=== PATIENT | male | born 1965 | race Caucasian/White ===

== ENCOUNTER 2019-09-17 10:10 | Emergency (ER) | payer SELFPAY ==
[~2019-09-17] VITALS: Ht 170.2 cm; Wt 81.8 kg
[2019-09-17 11:08] LABS: BASO % 0.7 % (0.0-1.0); EOS # 0.4 10^3/uL (0.0-0.5); EOS % 6.9 % (0.0-3.0); HEMATOCRIT 49.2 % (42.0-52.0); HEMOGLOBIN 15.7 g/dl (13.5-17.5); LYMPH % 32.2 % (24.0-44.0); MEAN CORPUSCULAR HEMOGLOBIN 27.5 pg (27.0-33.0); MEAN CORPUSCULAR HGB CONC 31.9 g/dl (32.0-36.5); MEAN CORPUSCULAR VOLUME 86.3 fl (80.0-96.0); MONO # 0.6 10^3/uL (0.0-0.8); MONO % 9.5 % (0.0-5.0); NEUTROPHILS # 3.1 10^3/uL (1.5-8.5); NEUTROPHILS % 50.4 % (36.0-66.0); PLATELET COUNT, AUTOMATED 226 10^3/uL (150-450); WHITE BLOOD COUNT 6.1 10^3/uL (4.0-10.0)
[2019-09-17 11:36] LABS: ALBUMIN 3.8 GM/DL (3.2-5.2); ALT/SGPT 36 U/L (12-78); BILIRUBIN,DIRECT 0.1 MG/DL (0.0-0.2); BILIRUBIN,TOTAL 0.7 MG/DL (0.2-1.0); BLOOD UREA NITROGEN 12 MG/DL (7-18); CALCIUM LEVEL 9.3 MG/DL (8.5-10.1); CARBON DIOXIDE LEVEL 30 MEQ/L (21-32); CHLORIDE LEVEL 107 MEQ/L (98-107); CREATININE FOR GFR 1.06 MG/DL (0.70-1.30); GLOMERULAR FILTRATION RATE > 60.0 (>56); GLUCOSE, FASTING 93 MG/DL (70-100); LIPASE 81 U/L (73-393); POTASSIUM SERUM 5.3 MEQ/L (3.5-5.1); SODIUM LEVEL 141 MEQ/L (136-145); TOTAL PROTEIN 7.1 GM/DL (6.4-8.2)
--- NOTE | 2019-09-17 12:16 | REP ---
CT ABDOMEN AND PELVIS WITHOUT IV OR ORAL CONTRAST: HISTORY: Flank pain right lateral abdomen pain. Hematuria. No comparison imaging. CT CONTRAST DOSE: Preliminary digital traffic i manager radiograph demonstrates an unremarkable bowel gas pattern. The lung bases are clear on axial CT images. There is no evidence of pleural effusion or upper abdominal ascites. The liver and the spleen are normal in size. There are four low-density 1 cm areas in the left and right lobe of the liver consistent with hemangiomas or cysts. No abnormalities noted the gallbladder. The spleen is homogeneous. No adrenal lesion is seen. There is a cyst in the upper pole of the right kidney and there are small intrarenal calculi in each kidney. The largest of these is in the lower pole on the right measuring 3 mm in diameter. No hydronephrosis is seen. No ureteral calculus is observed. Prostate, seminal vesicles, and urinary bladder are unremarkable. Small and large bowel loops are normal in appearance. No abdominal wall defect is observed. The patient is status post bilateral inguinal herniorrhaphy. No bony destructive lesion is appreciated. Normal appendix is seen. IMPRESSION: Bilateral intrarenal nephrolithiasis without hydronephrosis. Status post bilateral inguinal herniorrhaphy. Otherwise negative. Electronically Signed by Sharif Harvey MD 09/17/2019 12:46 P
[2019-09-17] MEDS ORDERED: KETOROLAC 30 MG/ML VIAL (J1885) IV ONE (13:00)
[2019-09-17 14:17] VITALS: BP 160/99
[2019-09-17] MEDS ORDERED: KETO10TAB PO (14:40)
== END 2019-09-17 14:49 | disposition home or self-care (01) ==
LOC: M ED 10:10
DX: R10.11 Right upper quadrant pain (principal); R10.31 Right lower quadrant pain; R31.9 Hematuria, unspecified
CPT/HCPCS: 36415; 74176; 80048; 80076; 81001; 83690; 85025; 96374; 99284; J1885

== ENCOUNTER 2019-10-25 13:06 | Emergency (ER) | payer SELFPAY ==
[~2019-10-25] VITALS: Ht 170.2 cm; Wt 88.4 kg
[~2019-10-25 13:06] MED LIST: KETO10TAB PO
[2019-10-25] MEDS ORDERED: LIDOCAINE 1% MDV 20ML VIAL INFIL ONE (15:30)
--- NOTE | 2019-10-25 16:26 | REP ---
Clinical: Trauma. Technique: AP, lateral, bilateral oblique views of the left second digit. Findings: Laceration. No acute fracture dislocation. No abnormal calcifications or foreign body. Impression: No acute fracture dislocation. Electronically Signed by Jostin Yancey MD 10/25/2019 04:18 P
[2019-10-25 17:15] VITALS: BP 139/81
== END 2019-10-25 17:19 | disposition home or self-care (01) ==
LOC: M ED 13:06
DX: S61.211A Laceration without foreign body of left index finger without damage to nail, initial encounter (principal); W26.8XXA Contact with other sharp object(s), not elsewhere classified, initial encounter; Y92.9 Unspecified place or not applicable; Y93.9 Activity, unspecified; Y99.0 Civilian activity done for income or pay

== ENCOUNTER → 2022-03-24 | Outpatient (REF) | payer OTHER ==
[2022-03-24 11:22] LABS: HEMATOCRIT 45.6 % (42.0-52.0)
[2022-03-24 12:05] LABS: ALBUMIN 3.8 GM/DL (3.2-5.2); ALT/SGPT 25 U/L (12-78); BILIRUBIN,TOTAL 0.7 MG/DL (0.2-1.0); BLOOD UREA NITROGEN 12 MG/DL (7-18); CALCIUM LEVEL 9.4 MG/DL (8.5-10.1); CARBON DIOXIDE LEVEL 29 MEQ/L (21-32); CHLORIDE LEVEL 108 MEQ/L (98-107); CREATININE FOR GFR 0.98 MG/DL (0.70-1.30); GLOMERULAR FILTRATION RATE > 60.0 (>56); GLUCOSE, FASTING 99 MG/DL (70-100); POTASSIUM SERUM 4.2 MEQ/L (3.5-5.1); SODIUM LEVEL 140 MEQ/L (136-145); TOTAL PROTEIN 6.8 GM/DL (6.4-8.2)
== END ==
LOC: M SFHCCLAY 09:08
PROVIDERS: ATTEND Nurse Practitioner Family
DX: R10.9 Unspecified abdominal pain (principal); Z12.5 Encounter for screening for malignant neoplasm of prostate
CPT/HCPCS: 80053; 85014; 85018; G0103

== ENCOUNTER → 2022-04-08 | Outpatient (CLI) | payer SELFPAY | LOC: M WHC 06:56 | PROVIDERS: ATTEND Nurse Practitioner Family | DX: K76.89 Other specified diseases of liver (principal); N28.1 Cyst of kidney, acquired; R10.9 Unspecified abdominal pain ==

== ENCOUNTER → 2022-05-24 | Outpatient (REF) | payer OTHER | LOC: M SFHCCLAY 08:56 | PROVIDERS: ATTEND Physician Assistant | DX: R97.20 Elevated prostate specific antigen [PSA] (principal) ==

== ENCOUNTER → 2022-12-01 | Outpatient (REF) | payer OTHER | LOC: M SFHCCLAY 08:01 | PROVIDERS: ATTEND Physician Assistant | DX: R97.20 Elevated prostate specific antigen [PSA] (principal) ==

== ENCOUNTER → 2023-05-30 | Outpatient (REF) | payer OTHER | LOC: M SFHCCLAY 09:05 | PROVIDERS: ATTEND Physician Assistant | DX: R97.20 Elevated prostate specific antigen [PSA] (principal) ==

== ENCOUNTER → 2024-07-26 | Outpatient (REF) | payer SELFPAY ==
[2024-07-26 12:42] LABS: PROSTATIC SPECIFIC AG MONITOR 4.44 NG/ML (< 4.00)
[2024-07-26 12:44] LABS: ALBUMIN 3.3 G/DL (3.2-5.2); ALKALINE PHOSPHATASE 71 U/L (46-116); ALT/SGPT 19 U/L (7.0-40); AST/SGOT 10 U/L (<34); BILIRUBIN,TOTAL 0.4 MG/DL (0.3-1.2); BLOOD UREA NITROGEN 14 MG/DL (9-23); CALCIUM LEVEL 9.5 MG/DL (8.3-10.6); CARBON DIOXIDE LEVEL 32 MMOL/L (20-31); CHLORIDE LEVEL 105 MMOL/L (98-107); CREATININE FOR GFR 0.93 MG/DL (0.70-1.30); GLOMERULAR FILTRATION RATE > 60.0 (>49); GLUCOSE, FASTING 107 MG/DL (74-106); POTASSIUM SERUM 5.2 MMOL/L (3.5-5.1); SODIUM LEVEL 139 MMOL/L (136-145); TOTAL PROTEIN 6.4 G/DL (5.7-8.2)
== END ==
LOC: M SFHCCLAY 07:51
PROVIDERS: ATTEND Nurse Practitioner Family
DX: R97.20 Elevated prostate specific antigen [PSA] (principal); R10.9 Unspecified abdominal pain

== ENCOUNTER → 2024-08-27 | Outpatient (CLI) | payer SELFPAY | LOC: M RAD 09:50 | PROVIDERS: ATTEND Nurse Practitioner Family | DX: R10.9 Unspecified abdominal pain (principal); K82.4 Cholesterolosis of gallbladder ==

== ENCOUNTER 2024-11-01 06:25 | Day surgery (SDC) | payer SELFPAY ==
[~2024-11-01] VITALS: Ht 170.2 cm; Wt 83.2 kg
[2024-11-01] MEDS ORDERED: NS (Normal Saline) 0.9% 1,000 ML IV SCH (06:50)
[2024-11-01] MEDS ORDERED: SUGAMMADEX SODIUM 500 MG/5 ML VIAL (BRIDION) As Ordered ONE (07:00)
[2024-11-01] MEDS ORDERED: ROCURONIUM BROMIDE 50MG/5ML VIAL As Ordered ONE (07:00)
[2024-11-01] MEDS ORDERED: propofoL 200 MG/20 ML VIAL As Ordered ONE (07:00)
[2024-11-01] MEDS ORDERED: LIDOCAINE 2% 100MG/5ML SDV (FOR ANES.) As Ordered ONE (07:00)
[2024-11-01] MEDS ORDERED: ONDANSETRON 4MG 2ML VIAL As Ordered ONE (07:00)
[2024-11-01] MEDS ORDERED: fentaNYL 100 MCG/2 ML INJECTION As Ordered ONE (07:01)
[2024-11-01] MEDS ORDERED: MIDAZOLAM INJ 2MG/2ML VIAL As Ordered ONE (07:01)
[2024-11-01] MEDS: INDOCYANINE GREEN 25MG VIAL (IC-GREEN) IV ONE (07:35)
[2024-11-01] MEDS: ceFAZolin SOD 2 GM in IV 1 EA IV ONE (07:35)
[2024-11-01] MEDS: HEPARIN SOD (PORCINE) 5000UNITS/ML 1ML VIAL/SYRINGE SQ ONE (07:50)
[2024-11-01] MEDS ORDERED: ACETAMINOPHEN 1000MG/100ML IV BAG As Ordered ONE (08:14)
[2024-11-01] MEDS ORDERED: dexmedeTOMIDine (4MCG/ML)200MCG/50ML BTL (PRECEDEX) As Ordered ONE (08:14)
[2024-11-01] MEDS ORDERED: KETOROLAC 60MG 2ML VIAL As Ordered ONE (08:32)
[2024-11-01] MEDS ORDERED: fentaNYL 100 MCG/2 ML INJECTION IV PRN (08:45)
[2024-11-01] MEDS ORDERED: ONDANSETRON 4MG 2ML VIAL IV PRN (08:45)
[2024-11-01] MEDS ORDERED: oxyCODONE 5MG TAB PO PRN (08:45)
[2024-11-01 10:00] VITALS: BP 162/89; TEMP 98.7; O2SAT 97
== END 2024-11-01 10:05 | disposition home or self-care (01) ==
LOC: M SDC 06:25
PROVIDERS: ATTEND Surgery
DX: K81.1 Chronic cholecystitis (principal); K66.0 Peritoneal adhesions (postprocedural) (postinfection); Z87.891 Personal history of nicotine dependence
CPT/HCPCS: 47562; 88304; 93005; J0131; J0665; J0690; J1885; J2250; J2405; J3010; Q9968; S2900